=== PATIENT | female | born 1945 | race Two or more races ===

== ENCOUNTER → 2019-06-10 | Outpatient (CLI) | payer OTHER | END | disposition home or self-care (01) | LOC: LAB SALUS 10:56 | DX: Z11.4 Encounter for screening for human immunodeficiency virus [HIV] (principal); Z12.11 Encounter for screening for malignant neoplasm of colon; Z72.51 High risk heterosexual behavior; Z11.3 Encounter for screening for infections with a predominantly sexual mode of transmission; Z11.59 Encounter for screening for other viral diseases; Z13.1 Encounter for screening for diabetes mellitus; Z13.220 Encounter for screening for lipoid disorders; E11.65 Type 2 diabetes mellitus with hyperglycemia; Z12.4 Encounter for screening for malignant neoplasm of cervix ==

== ENCOUNTER 2021-02-01 12:25 | Emergency (ER) | payer OTHER ==
[~2021-02-01] VITALS: Ht 160 cm; Wt 73.9 kg
[2021-02-01] MEDS ORDERED: ABANEU-SL TABL1 EACH (12:37)
[2021-02-01] MEDS ORDERED: GLIMEPIRIDE2 M1 (12:37)
[2021-02-01] MEDS ORDERED: LEVO-T25 MCG (12:38)
[2021-02-01] MEDS ORDERED: LIPITOR20 MG (12:38)
[2021-02-01] MEDS ORDERED: LISINOPRIL10 MG (12:38)
[2021-02-01] MEDS ORDERED: KETO10TA2 PO (16:34)
[2021-02-01] MEDS ORDERED: ORPHENADRINE C100 MG PO (16:34)
== END 2021-02-01 16:48 | disposition home or self-care (01) ==
LOC: ER 12:25
DX: M25.562 Pain in left knee (principal)

== ENCOUNTER → 2021-02-08 | Outpatient (CLI) | payer OTHER ==
[~2021-02-08] MED LIST: ABANEU-SL TABL1 EACH; GLIMEPIRIDE2 M1; KETO10TA2 PO; LEVO-T25 MCG; LIPITOR20 MG; LISINOPRIL10 MG; ORPHENADRINE C100 MG PO
== END | disposition home or self-care (01) ==
LOC: MRI 12:14
PROVIDERS: ATTEND Orthopaedic Surgery
DX: M25.562 Pain in left knee (principal)
CPT/HCPCS: 73721

== ENCOUNTER → 2022-11-14 | Outpatient (CLI) | payer OTHER | END | disposition home or self-care (01) | LOC: RAD 09:17 | PROVIDERS: ATTEND Ophthalmology | DX: H25.011 Cortical age-related cataract, right eye (principal); Z98.41 Cataract extraction status, right eye ==

== ENCOUNTER 2023-12-11 07:27 | Outpatient (CLI) | payer OTHER | END 2023-12-11 07:29 | disposition home or self-care (01) | LOC: MRI 07:27 | PROVIDERS: ATTEND Internal Medicine | DX: S83.200A Bucket-handle tear of unspecified meniscus, current injury, right knee, initial encounter (principal); M67.51 Plica syndrome, right knee; M22.41 Chondromalacia patellae, right knee; I10 Essential (primary) hypertension; E03.9 Hypothyroidism, unspecified; E78.9 Disorder of lipoprotein metabolism, unspecified; E55.9 Vitamin D deficiency, unspecified; E11.51 Type 2 diabetes mellitus with diabetic peripheral angiopathy without gangrene; E11.9 Type 2 diabetes mellitus without complications; G62.9 Polyneuropathy, unspecified; E11.42 Type 2 diabetes mellitus with diabetic polyneuropathy; M89.9 Disorder of bone, unspecified; I11.9 Hypertensive heart disease without heart failure; E11.65 Type 2 diabetes mellitus with hyperglycemia; E03.2 Hypothyroidism due to medicaments and other exogenous substances | CPT/HCPCS: 73718 ==